=== PATIENT | male | born 1940 | race Caucasian/White ===

== ENCOUNTER → 2017-01-27 | Outpatient (CLI) | payer OTHER, MEDICARE ==
[~2017-01-27] VITALS: Ht 188 cm; Wt 172.7 kg
[~2017-01-27] MED LIST: ACTOS45 MG PO; AMARYL4 MG PO; ASPIRIN325 MG PO; CRESTOR20 MG PO; DIABETA,MICRONAS5 MG PO; FISH OIL 1,0001 EAC7 PO; FOSINOPRIL SODI40 MG PO; GLUCOPHAGE1000 MG PO; GLUCOPHAGE500 MG PO; HYDROCHLOROTHIA25 MG PO; JANUVIA100 MG PO; LEVEMIR FL100 UNIT/1 SC; LIPITOR40 MG PO; LO-DOSE ASPIRIN81 M2 PO; VITAMIN C500 M1 PO; VITAMIN D32000 UNI1 PO; ZESTRIL40 MG PO
[2017-01-27 09:45] LABS: CHLORIDE 107 mEq/L (99-109); POTASSIUM 4.2 mEq/L (3.7-5.4)
[2017-01-27 09:46] LABS: SODIUM 141 mEq/L (136-147)
[2017-01-27 09:47] LABS: GLUCOSE 117 mg/dL (70-99)
[2017-01-27 09:49] LABS: ANION GAP 14 MEQ/L (2-14)
[2017-01-27 09:51] LABS: GFR ESTIMATE (CALCULATED) > 59 mL/min/
[2017-01-27 09:52] LABS: UREA NITROGEN (BUN) 19 mg/dL (9-23)
[2017-01-27 10:19] LABS: POINT-OF-CARE METER ID UU13113694
== END | disposition home or self-care (01) ==
LOC: AMB 09:08
PROVIDERS: Anesthesiology; Internal Medicine Gastroenterology
PROC: 0DJD8ZZ Inspection of Lower Intestinal Tract, Via Natural or Artificial Opening Endoscopic (ICD-10-PCS; principal; 2017-01-27)
DX: Z12.11 Encounter for screening for malignant neoplasm of colon (principal); Z86.010 Personal history of colon polyps; K57.30 Diverticulosis of large intestine without perforation or abscess without bleeding; K21.9 Gastro-esophageal reflux disease without esophagitis; I10 Essential (primary) hypertension; E11.40 Type 2 diabetes mellitus with diabetic neuropathy, unspecified; G47.33 Obstructive sleep apnea (adult) (pediatric); E66.01 Morbid (severe) obesity due to excess calories; Z68.42 Body mass index [BMI] 45.0-49.9, adult; Z79.4 Long term (current) use of insulin; Z79.84 Long term (current) use of oral hypoglycemic drugs; Z79.899 Other long term (current) drug therapy; Z79.82 Long term (current) use of aspirin
CPT/HCPCS: 80048; 82948; 93005; J2250; J2405; J3010